=== PATIENT | female | born 1995 | race Caucasian/White ===

== ENCOUNTER 2021-08-19 12:46 | Emergency (ER) | payer MEDICAID ==
[~2021-08-19] VITALS: Ht 154.9 cm; Wt 63.6 kg
[2021-08-19] MEDS ORDERED: ACETAMINOPHEN 500 MG TABLET PO ONE (13:45)
[2021-08-19] MEDS ORDERED: IBUPROFEN 400 MG TABLET PO ONE (14:00)
[2021-08-19 14:38] VITALS: BP 126/77
== END 2021-08-19 14:56 | disposition home or self-care (01) ==
LOC: EMS 12:52
DX: U07.1 COVID-19 (principal); J02.9 Acute pharyngitis, unspecified; M79.18 Myalgia, other site; Z88.8 Allergy status to other drugs, medicaments and biological substances
CPT/HCPCS: 71045; 99283